=== PATIENT | male | born 1935 | race Caucasian/White ===

== ENCOUNTER 2019-04-21 09:58 | Inpatient (IN) ==
[2019-04-21] MEDS ORDERED: FAMOTIDINE 20 MG/2 ML VIAL IV STA (10:19)
[2019-04-21] MEDS ORDERED: NITROGLYCERIN 2% OINT 1 INCH/GM PACK TOP STA (10:19)
[2019-04-21] MEDS ORDERED: KETOROLAC 30 MG/1 ML VIAL IV STA (10:19)
[2019-04-21] MEDS ORDERED: ASPIRIN 325 MG TABLET PO STA (10:19)
[2019-04-21] MEDS ORDERED: ONDANSETRON 4 MG/2 ML VIAL IV STA (10:19)
[2019-04-21] MEDS ORDERED: ALBUTEROL/IPRATROPIUM 3 ML NEB RESP TX STA (10:21)
[2019-04-21 10:45] LABS: Basophils % 0.4 % (0.0-0.8); Eosinophils # 0.1 10*3/uL (0.0-0.87); Eosinophils % 1.9 % (0.00-10.9); Hematocrit 31.9 VOL% (42.0-52.0); Hemoglobin 9.5 GM/DL (14.0-18.0); Immature Granulocytes % 0.2 %; Immature Granulocytes Absolute 0.01 #; Lymphocytes # 2.5 10*3/uL (1.4-4.0); Lymphocytes % 44.2 % (21.2-54.2); Mean Corpuscular HGB Conc 29.8 GM/DL (32-36); Mean Corpuscular Volume 81.8 FL (87-102); Mean Platelet Volume 10.5 FL (9.6-12.0); Monocytes % 8.5 % (1.7-12.7); Neutrophils % 44.8 % (38.7-73.9); Platelet Count 167 T/CUMM (130-400); Red Cell Distribution Width 16.6 % (9.3-17.3); White Blood Count 5.7 T/CUMM (4-12)
[2019-04-21 10:57] LABS: Alanine Aminotransferase 19 U/L (16-61); Albumin 3.4 G/DL (3.4-5.0); Alkaline Phosphatase 84 U/L (45-117); Aspartate Amino Transferase 15 U/L (0-37); Blood Urea Nitrogen 19 MG/DL (7-18); Calcium 8.6 MG/DL (8.5-10.1); Glucose 101 MG/DL (74-106); Osmolality,Calculated 284.1 MOS/KG (273-304); Partial Thromboplastin Time 35.4 SECS (0-40); Total Protein 6.4 G/DL (6.4-8.3); Troponin I < 0.015 NG/ML (0.00-0.045)
[2019-04-21 11:02] LABS: INR 2.5
[2019-04-21 11:04] LABS: PT Patient Result 27.3 SECS
[2019-04-21 11:16] LABS: Platelet Estimate Normal
[2019-04-21 11:17] LABS: Anisocytosis 1+; Ovalocytes Few; Poikilocytosis Slight; Tear Drop Cells Few
[2019-04-21 11:18] LABS: Polychromasia Slight
[2019-04-21 11:49] LABS: Apearance,Urine CLEAR (Clear); Bilirubin,Urine Negative (Negative); Blood, Urine Negative (Negative); Glucose,Urine (UA) Negative (Negative); Ketones,Urine Negative (Negative); Mucus,Urine Occasional /LPF (Occasional); Nitrite,Urine Negative (Negative); Protein,Urine Negative; RBC,Urine <1 /HPF (0-4); Squamous Epithelial Cell,Urine Occasional /HPF (0-10); Urine Color Yellow (Yellow); Urine Specific Gravity 1.018 (1.001-1.035); Urine Urobilinogen < 2.0 EU/DL (0.2-1.0)
[2019-04-21 11:52] LABS: Barbiturates Screen,Urine Negative (Negative); Benzodiazepines Screen,Urine Positive (Negative); Cannabinoid Screen,Urine Negative (Negative); Opiate Screen,Urine Negative (Negative); Phencyclidine Screen,Urine Negative (Negative)
[2019-04-21] MEDS ORDERED: ALBUTEROL/IPRATROPIUM 3 ML NEB RESP TX PRN (15:13)
[2019-04-21] MEDS ORDERED: ACETAMINOPHEN 325 MG TABLET PO PRN (15:13)
[2019-04-21] MEDS ORDERED: WARFARIN 4 MG TABLET PO SCH (18:00)
[2019-04-21] MEDS: AZITHROMYCIN INJ 500 MG in SODIUM CHLORIDE 0.9% 250 ML IV SCH (18:23)
[2019-04-21 19:25] LABS: Troponin I < 0.015 NG/ML (0.00-0.045)
[2019-04-21] MEDS: ALBUTEROL/IPRATROPIUM 3 ML NEB RESP TX SCH (19:32)
[2019-04-21] MEDS: DORNASE ALFA 2.5 MG/2.5 ML VIAL RESP TX SCH (19:32)
[2019-04-21] MEDS: guaiFENesin/DM ER 600-30 MG TABLET PO SCH (20:22)
[2019-04-21] MEDS: ALLOPURINOL 300 MG TABLET PO SCH (20:22)
[2019-04-21] MEDS: BENZONATATE 100 MG CAPSULE PO SCH (20:22)
[2019-04-21] MEDS: cefTRIAXone 2,000 MG in SYRINGE 1 EACH IV SCH (20:22)
[2019-04-21] MEDS: ChlordiazePOXIDE/CLIDINIUM 5-2.5 MG CAPSULE PO SCH (20:22)
[2019-04-21] MEDS: traZODone 50 MG TABLET PO SCH (20:22)
[2019-04-21] MEDS: SIMVASTATIN 20 MG TABLET PO SCH (20:22)
[2019-04-21] MEDS: METOPROLOL TARTRATE 50 MG TABLET PO SCH (20:22)
[2019-04-21] MEDS: FAMOTIDINE 20 MG TABLET PO SCH (20:22)
[2019-04-21] MEDS ORDERED: ENOXAPARIN 40 MG/0.4 ML SYRINGE SUBCUT SCH (21:00)
[2019-04-21] MEDS ORDERED: LEVOTHYROXINE 75 MCG TABLET PO SCH (21:00)
[2019-04-22 00:55] LABS: Troponin I < 0.015 NG/ML (0.00-0.045)
[2019-04-22] MEDS: ALBUTEROL/IPRATROPIUM 3 ML NEB RESP TX SCH ×4 (00:58→20:17)
[2019-04-22] MEDS: LEVOTHYROXINE 75 MCG TABLET PO SCH (05:07)
[2019-04-22 05:49] LABS: Basophils % 0.4 % (0.0-0.8); Eosinophils # 0.1 10*3/uL (0.0-0.87); Eosinophils % 2.4 % (0.00-10.9); Hematocrit 30.2 VOL% (42.0-52.0); Hemoglobin 8.8 GM/DL (14.0-18.0); Immature Granulocytes % 0.2 %; Immature Granulocytes Absolute 0.01 #; Lymphocytes # 1.9 10*3/uL (1.4-4.0); Lymphocytes % 37.6 % (21.2-54.2); Mean Corpuscular HGB Conc 29.1 GM/DL (32-36); Mean Corpuscular Volume 82.1 FL (87-102); Mean Platelet Volume 10.8 FL (9.6-12.0); Neutrophils % 48.4 % (38.7-73.9); Platelet Count 167 T/CUMM (130-400); Red Blood Count 3.68 MC/CUMM (3.8-5.5); Red Cell Distribution Width 16.6 % (9.3-17.3); White Blood Count 5.1 T/CUMM (4-12)
[2019-04-22 05:59] LABS: INR 2.7
[2019-04-22 06:00] LABS: PT Patient Result 28.9 SECS
[2019-04-22 06:18] LABS: Albumin 2.9 G/DL (3.4-5.0); Bilirubin,Total 0.6 MG/DL (0.2-1.0); Calcium 8.3 MG/DL (8.5-10.1); Thyroid Stimulating Hormone 4.19 uIU/ml (0.358-3.74); Total Protein 5.9 G/DL (6.4-8.3)
[2019-04-22] MEDS: DORNASE ALFA 2.5 MG/2.5 ML VIAL RESP TX SCH ×2 (07:50→20:21)
[2019-04-22 10:38] LABS: % Iron Saturation 9.1 % (18-50)
[2019-04-22 10:51] LABS: Folate 6.7 NG/ML (5.4-24.0)
[2019-04-22] MEDS: hydroCHLOROthiazide 25 MG TABLET PO SCH (11:00)
[2019-04-22] MEDS: ISOSORBIDE MONONITRATE 30 MG TABLET PO SCH (11:01)
[2019-04-22] MEDS: PANTOPRAZOLE 40 MG TABLET PO SCH (11:02)
[2019-04-22] MEDS: BENZONATATE 100 MG CAPSULE PO SCH ×2 (11:02→20:40)
[2019-04-22] MEDS: MONTELUKAST 10 MG TABLET PO SCH (11:02)
[2019-04-22] MEDS: METOPROLOL TARTRATE 50 MG TABLET PO SCH ×2 (11:03→20:40)
[2019-04-22] MEDS: LIDOCAINE 5% PATCH TRANSDERM SCH (11:19)
[2019-04-22] MEDS: cefTRIAXone 2,000 MG in SYRINGE 1 EACH IV SCH (11:19)
[2019-04-22] MEDS: AZITHROMYCIN INJ 500 MG in SODIUM CHLORIDE 0.9% 250 ML IV SCH (11:20)
[2019-04-22] MEDS: guaiFENesin/DM ER 600-30 MG TABLET PO SCH ×2 (11:20→20:39)
[2019-04-22] MEDS: VALSARTAN 160 MG TABLET PO SCH (11:22)
[2019-04-22] MEDS ORDERED: CYANOCOBALAMIN 1000 MCG/1 ML VIAL IM ONE (12:00)
[2019-04-22] MEDS: FERRIC GLUCONATE COMPLEX 125 MG in SODIUM CHLORIDE 0.9% 100 ML IV SCH (12:50)
[2019-04-22] MEDS ORDERED: WARFARIN 2 MG TABLET PO SCH (18:00)
[2019-04-22] MEDS: FAMOTIDINE 20 MG TABLET PO SCH (20:39)
[2019-04-22] MEDS: ALLOPURINOL 300 MG TABLET PO SCH (20:39)
[2019-04-22] MEDS: ChlordiazePOXIDE/CLIDINIUM 5-2.5 MG CAPSULE PO SCH (20:40)
[2019-04-22] MEDS: SIMVASTATIN 20 MG TABLET PO SCH (20:40)
[2019-04-22] MEDS: traZODone 50 MG TABLET PO SCH (20:40)
[2019-04-23] MEDS: ALBUTEROL/IPRATROPIUM 3 ML NEB RESP TX SCH ×4 (00:20→19:12)
[2019-04-23] MEDS: LEVOTHYROXINE 75 MCG TABLET PO SCH (05:18)
[2019-04-23 05:25] LABS: INR 2.5
[2019-04-23 05:26] LABS: PT Patient Result 27.4 SECS
[2019-04-23 05:32] LABS: Basophils % 0.4 % (0.0-0.8); Eosinophils # 0.2 10*3/uL (0.0-0.87); Eosinophils % 3.7 % (0.00-10.9); Hematocrit 28.8 VOL% (42.0-52.0); Hemoglobin 8.4 GM/DL (14.0-18.0); Immature Granulocytes % 0.4 %; Immature Granulocytes Absolute 0.02 #; Lymphocytes % 40.1 % (21.2-54.2); Mean Corpuscular HGB Conc 29.2 GM/DL (32-36); Mean Corpuscular Volume 82.3 FL (87-102); Mean Platelet Volume 10.7 FL (9.6-12.0); Monocytes % 12.1 % (1.7-12.7); Neutrophils % 43.3 % (38.7-73.9); Platelet Count 172 T/CUMM (130-400); Red Cell Distribution Width 16.9 % (9.3-17.3); White Blood Count 4.9 T/CUMM (4-12)
[2019-04-23 05:33] LABS: Albumin 2.9 G/DL (3.4-5.0); Bilirubin,Total 0.5 MG/DL (0.2-1.0); Calcium 8.3 MG/DL (8.5-10.1); Osmolality,Calculated 283.3 MOS/KG (273-304); Total Protein 5.6 G/DL (6.4-8.3)
[2019-04-23] MEDS: DORNASE ALFA 2.5 MG/2.5 ML VIAL RESP TX SCH ×2 (06:45→19:12)
[2019-04-23] MEDS: AZITHROMYCIN INJ 500 MG in SODIUM CHLORIDE 0.9% 250 ML IV SCH (10:37)
[2019-04-23] MEDS: VALSARTAN 160 MG TABLET PO SCH (10:41)
[2019-04-23] MEDS: MONTELUKAST 10 MG TABLET PO SCH (10:41)
[2019-04-23] MEDS: METOPROLOL TARTRATE 50 MG TABLET PO SCH ×2 (10:42→21:10)
[2019-04-23] MEDS: ISOSORBIDE MONONITRATE 30 MG TABLET PO SCH (10:42)
[2019-04-23] MEDS: guaiFENesin/DM ER 600-30 MG TABLET PO SCH ×2 (10:44→21:09)
[2019-04-23] MEDS: hydroCHLOROthiazide 25 MG TABLET PO SCH (10:44)
[2019-04-23] MEDS: PANTOPRAZOLE 40 MG TABLET PO SCH (10:44)
[2019-04-23] MEDS: cefTRIAXone 2,000 MG in SYRINGE 1 EACH IV SCH (10:45)
[2019-04-23] MEDS: BENZONATATE 100 MG CAPSULE PO SCH ×2 (10:45→21:10)
[2019-04-23] MEDS: FERRIC GLUCONATE COMPLEX 125 MG in SODIUM CHLORIDE 0.9% 100 ML IV SCH (10:54)
[2019-04-23] MEDS: LIDOCAINE 5% PATCH TRANSDERM SCH (10:57)
[2019-04-23] MEDS: ASPIRIN EC 81 MG TABLET PO SCH (12:29)
[2019-04-23] MEDS: cephALEXin 500 MG CAPSULE PO SCH ×2 (19:22→23:32)
[2019-04-23] MEDS: traZODone 50 MG TABLET PO SCH (21:09)
[2019-04-23] MEDS: FAMOTIDINE 20 MG TABLET PO SCH (21:09)
[2019-04-23] MEDS: ChlordiazePOXIDE/CLIDINIUM 5-2.5 MG CAPSULE PO SCH (21:09)
[2019-04-23] MEDS: SIMVASTATIN 20 MG TABLET PO SCH (21:10)
[2019-04-23] MEDS: ALLOPURINOL 300 MG TABLET PO SCH (21:10)
[2019-04-24] MEDS: ALBUTEROL/IPRATROPIUM 3 ML NEB RESP TX SCH ×2 (00:15→07:28)
[2019-04-24] MEDS: LEVOTHYROXINE 75 MCG TABLET PO SCH (05:17)
[2019-04-24] MEDS: DORNASE ALFA 2.5 MG/2.5 ML VIAL RESP TX SCH (07:32)
[2019-04-24] MEDS: LIDOCAINE 5% PATCH TRANSDERM SCH (08:46)
[2019-04-24] MEDS: ASPIRIN EC 81 MG TABLET PO SCH (08:48)
[2019-04-24] MEDS: ISOSORBIDE MONONITRATE 30 MG TABLET PO SCH (08:49)
[2019-04-24] MEDS: PANTOPRAZOLE 40 MG TABLET PO SCH (08:49)
[2019-04-24] MEDS: BENZONATATE 100 MG CAPSULE PO SCH (08:50)
[2019-04-24] MEDS: VALSARTAN 160 MG TABLET PO SCH (08:50)
[2019-04-24] MEDS: MONTELUKAST 10 MG TABLET PO SCH (08:50)
[2019-04-24] MEDS: guaiFENesin/DM ER 600-30 MG TABLET PO SCH (08:50)
[2019-04-24] MEDS: cephALEXin 500 MG CAPSULE PO SCH (08:50)
[2019-04-24] MEDS ORDERED: cefTRIAXone 2,000 MG in SODIUM CHLORIDE 0.9% 100 ML IV SCH (09:00)
[2019-04-24] MEDS: hydroCHLOROthiazide 25 MG TABLET PO SCH (10:17)
[2019-04-24] MEDS: METOPROLOL TARTRATE 50 MG TABLET PO SCH (10:17)
[2019-04-24] MEDS: FERRIC GLUCONATE COMPLEX 125 MG in SODIUM CHLORIDE 0.9% 100 ML IV SCH (10:25)
[2019-04-24 11:08] VITALS: BP 121/61
== END 2019-04-24 13:00 | disposition home or self-care (01) | DRG 202 ==
LOC: EDUNIT# → EDBD → N.ED 09:58 → SUATTDRO 15:13 → N.2E 15:13
PROVIDERS: ADMIT Hospitalist; ATTEND Internal Medicine